=== PATIENT | male | born 1955 | race Caucasian/White ===

== ENCOUNTER 2023-08-07 09:01 | Day surgery (SDC) | payer MEDICARE, OTHER ==
[~2023-08-07] VITALS: Ht 180.3 cm; Wt 87.5 kg
[~2023-08-07 09:01] MED LIST: ASPI81CH33 PO; CENT1TAB12 PO; ELIQ2.5T PO; ELIQ5TAB PO; METO50TA7 PO; OMEP40CA5 PO; ROSU20TA61 PO; VITA500C24 PO
[2023-08-07] MEDS: PROPARACAINE 0.5% OPHTH SOL 15ML OD ONE (09:45)
[2023-08-07] MEDS: CYCLOPENTOLATE 1% OPHTH SOLN 2ML BTL OD SCH (09:54)
[2023-08-07] MEDS: OFLOXACIN 0.3 % (OCUFLOX) OPTH SOL 5ML OD SCH (09:54)
[2023-08-07] MEDS: TROPICAMIDE 1% OPHTH SOLN 15ML OD SCH (09:54)
[2023-08-07] MEDS: PHENYLEPHRINE 2.5% OPHTH SOL 2ML OD SCH (09:54)
[2023-08-07] MEDS ORDERED: fentaNYL 100 MCG/2 ML INJECTION As Ordered ONE (10:33)
[2023-08-07] MEDS ORDERED: MIDAZOLAM INJ 2MG/2ML VIAL As Ordered ONE (10:33)
[2023-08-07] MEDS: LIDOCAINE 1% SDV 5ML VIAL As Ordered ONE (10:36)
[2023-08-07] MEDS: BSS IRR 500ML/OMIDRIA 4ML IRR BAG (OR ONLY) As Ordered ONE (10:37)
[2023-08-07] MEDS: CEFUROXIME 1MG/0.1ML INTRACAMERAL INJ As Ordered ONE (10:37)
[2023-08-07 10:55] VITALS: BP 131/72; TEMP 97.6; O2SAT 99
== END 2023-08-07 11:06 | disposition home or self-care (01) ==
LOC: M SDC 09:01
PROVIDERS: ATTEND Ophthalmology
DX: H25.11 Age-related nuclear cataract, right eye (principal); I48.91 Unspecified atrial fibrillation; I10 Essential (primary) hypertension; E78.5 Hyperlipidemia, unspecified; K21.9 Gastro-esophageal reflux disease without esophagitis; Z79.899 Other long term (current) drug therapy; Z79.01 Long term (current) use of anticoagulants; Z79.82 Long term (current) use of aspirin; F17.220 Nicotine dependence, chewing tobacco, uncomplicated
CPT/HCPCS: 66984; J0697; J1097; J2250; J3010; V2788